=== PATIENT | male | born 1990 | race Two or more races ===

== ENCOUNTER 2018-07-18 15:20 | Emergency (ER) | payer OTHER ==
[~2018-07-18] VITALS: Ht 175.3 cm; Wt 72.6 kg
[2018-07-18 15:20] VITALS: BP_SYST 127; BP_DIAS 82; BP_DIAS 84
[~2018-07-18 15:20] MED LIST: DiphenhydrAMINE 50mg/ml Inj IM ONE; Haloperidol 5mg/ml Inj IM ONE; LORazepam Inj 2mg/ml 1ml IM ONE
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
[2018-07-18] MEDS ORDERED: Haloperidol 5mg/ml Inj ONE (15:25)
[2018-07-18] MEDS ORDERED: LORazepam Inj 2mg/ml 1ml ONE (15:25)
[2018-07-18] MEDS ORDERED: DiphenhydrAMINE 50mg/ml Inj ONE (15:25)
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
[2018-07-18] MEDS ORDERED: Bacitracin Oint UD TOPIC ONE (15:30)
[2018-07-18 15:35] VITALS: BP 115/82
[2018-07-18 15:50] VITALS: BP 107/85
--- NOTE | 2018-07-18 16:00 | NUR ---
ED Nurse Note: Patient's belongings are located at located #2
[2018-07-18 16:06] VITALS: BP 102/85
--- NOTE | 2018-07-18 16:06 | NUR ---
ED Nurse Note: Patient has met all criterias for restraints removed, received order from dr. rodriguez for all restraints to be removed, no skin issues noted.
[2018-07-18 16:16] LABS: APPEARANCE,URINE CLEAR; BILIRUBIN, URINE NEGATIVE (NEGATIVE); GLUCOSE, URINE (UA) NEGATIVE (NEGATIVE); KETONES,URINE NEGATIVE (NEGATIVE); LEUKOCYTE ESTERASE ,URINE 1+ (NEGATIVE); NITRITE,URINE NEGATIVE (NEGATIVE); PH,URINE 7 (4.5-8.0); PROTEIN,URINE 1+ (NEGATIVE); UROBILINOGEN,URINE NORMAL MG/DL (0.0-1.0)
[2018-07-18 16:18] LABS: BASOPHILS % (AUTO) 0.9 % (0.0-2.0); EOSINOPHILS % (AUTO) 0.5 % (0.0-3.0); HEMATOCRIT 42.7 % (42.0-52.0); HEMOGLOBIN 14.5 G/DL (14.2-18.0); LYMPHOCYTES % (AUTO) 22.9 % (20.0-45.0); MEAN CORPUSCULAR VOLUME 87 FL (80-99); MONOCYTES % (AUTO) 6.1 % (1.0-10.0); NEUTROPHILS % (AUTO) 69.6 % (45.0-75.0); PLATELET COUNT 174 K/UL (150-450); RED BLOOD COUNT 4.92 M/UL (4.70-6.10); RED CELL DISTRIBUTION WIDTH 11.8 % (11.6-14.8); WHITE BLOOD COUNT 5.7 K/UL (4.8-10.8)
[2018-07-18 16:19] LABS: COLOR,URINE YELLOW
--- NOTE | 2018-07-18 16:25 | NUR ---
ED Nurse Note: Patient is calm and sleeping in bed, no distress noted
[2018-07-18 16:27] LABS: ANION GAP 11 mmol/L (5-15); BLOOD UREA NITROGEN 17 mg/dL (7-18); CALCIUM 9.2 MG/DL (8.5-10.1); CARBON DIOXIDE 27 MMOL/L (21-32); CHLORIDE 104 MMOL/L (98-107); CREATININE 0.9 MG/DL (0.55-1.30); POTASSIUM 3.3 MMOL/L (3.5-5.1); SODIUM 142 MMOL/L (136-145)
[2018-07-18 16:32] LABS: ALANINE AMINOTRANSFERASE 24 U/L (12-78); ALBUMIN 3.9 G/DL (3.4-5.0); ALBUMIN/GLOBULIN RATIO 1.3 (1.0-2.7); ALKALINE PHOSPHATASE 90 U/L (46-116); ASPARTATE AMINO TRANSFERASE 21 U/L (15-37); BILIRUBIN,TOTAL 0.5 MG/DL (0.2-1.0); CREATINE KINASE 103 U/L (26-308)
[2018-07-18 19:30] VITALS: BP 141/96
--- NOTE | 2018-07-18 19:30 | NUR ---
ED Nurse Note: RECIEVED REPORT FROM TEQUILA MIRANDA TO RESUME CARE, PT IN BED RESTING QUIETLY WITH BLANKETS OVER FACE, PT AWAKENED AND IS ALERT AND ORIENTED X 4, PT IS SLIGHTLY NOT COOPERATIVE AND SELECTIVE WITH QUESTIONS HE CHOOSES TO ANSWER, WILL NOT ANSWER IF HE IS SUICIDAL OR HOMICIDAL, DOES NOT ANSWER MOST QUESTIONS AT ALL, DOES COOPERATE WITH MOVING AND REPOSITIONING, ON CARDIAC MONITORING, HAS BEEN MEDICALLY CLEARED AND WAITING FOR PLACEMENT, WILL RESUME CARE ORDERED AND CONTINUE TO CLOSELY MONITOR.
[2018-07-18 21:00] VITALS: BP 111/88
--- NOTE | 2018-07-18 21:00 | NUR ---
ED Nurse Note: PT CONTINUES TO SLEEP IN BED, AROUSES EASILY TO VERBAL STIMULI, REMAINS SELECTIVELY MUTE, DOES RESPOND WITH THANK YOU, AND YES AND NO RESPONSES, DENIES PAIN, REMAINS ON CARDIAC MONITORING, V/S STABLE, NO SOB OR LABORED BREATHING, PT REMAINS ON 5150 HOLD, WILL CONTINUE TO MONITOR WHILE WAITING FOR PLACEMENT FOR PT.
[2018-07-19] VITALS (9 sets, daily range): BP systolic 96–118; BP diastolic 52–84
--- NOTE | 2018-07-19 | NUR ---
ED Nurse Note: PT CONTINUES TO SLEEP QUIETLY, REMAINS ON CARDIAC MONITORING, B/P LOWER BUT MD MARCO AWARE, PT REMAINS ON 5150 HOLD, CONTINUING TO SEARCH FOR PLACEMENT, UN-SUCCESSFUL AT THIS TIME, PT IV SITE INTACT AND PATENT, O2 SAT=98% ON RA, PT AWAKENS EASILY TO VERBAL STIMULI BUT CONTINUES TO NOT ANSWER ANY QUESTIONS, NO ATTEMPTS OR BEHAVIORAL CHANGES NOTED, WILL CONTINUE TO CLOSELY MONITOR.
--- NOTE | 2018-07-19 03:00 | NUR ---
ED Nurse Note: PT CONTINUES TO REST QUIETLY IN BED, AROUSES EASILY TO VERBAL STIMULI, PT DENIES PAIN, DENIES SUICIDAL OR HOMICIDAL IDEATIONS, NO ATTEMPTS MADE, PT REMAINS ON CARDIAC MONITORING, IV SITE INTACT AND PATENT, PT REMAINS ON 5150 HOLD, WAITING FOR PLACEMENT.
--- NOTE | 2018-07-19 06:00 | NUR ---
ED Nurse Note: NO ACUTE CHANGES OR INCREASED DISTRESS NOTED, PT RESTING QUIETLY IN BED, AROUSES EASILY TO VERBAL STIMULI, PT DENIES PAIN, NO CHANGES OR INCREASED DISTRESS, PT REMAINS ON 5150 HOLD AND WAITING FOR PLACEMENT, NO FACILITIES AVAILABLE AT THIS TIME.
--- NOTE | 2018-07-19 07:11 | NUR ---
ED Nurse Note: PT ROOM CHANGED TO TREATMENT AREA, PT IS AWAKE, ALERT AND ORIENTED X 4, REMAINS ON 5150 HOLD, IV SITE PATENT WITH FLUIDS INFUSING, PT TOLERATING WELL, PT DENIES PAIN, NO SOB OR LABORED BREATHING, VERBAL REPORT GIVEN TO TEQUILA FIERRO TO [facility]UME [facility], NAD NOTED DURING SHIFT CHANGE.
--- NOTE | 2018-07-19 07:37 | NUR ---
ED Nurse Note: REPORT RECEIVED FROM TEQUILA CHE. PT SLEEPING PEACEFULLY IN BED IN NAD. PATENT IV RUNNING IV FLUIDS. VSS.
--- NOTE | 2018-07-19 08:00 | NUR ---
ED Nurse Note: BREAKFAST TRAY PROVIDED TO PT. PT STATES HE WILL EAT IT LATER. TRAY LEFT AT BEDSIDE. PT AOX4. CALM AND COOPERATIVE.
--- NOTE | 2018-07-19 10:30 | NUR ---
ED Nurse Note: PT AMBULATED INDEPENDENTLY TO RESTROOM WITH STEADY GAIT.
--- NOTE | 2018-07-19 12:21 | NUR ---
ED Nurse Note: LUNCH TRAY PROVIDED FOR PT.
--- NOTE | 2018-07-19 13:00 | NUR ---
ED Nurse Note: PT AMBULATED INDEPENDTLY TO RESTROOM WITH STEADY GAIT.
--- NOTE | 2018-07-19 16:30 | NUR ---
ED Nurse Note: [facility]PH[facility] CALLED FOR PT REPORT. REPORT GIVEN TO TEQUILA ROSADO. FACILITY AWARE OF AMBULANCE ETA OF 1610 AND STATES THEY ARE READY TO ACCEPT PT.
--- NOTE | 2018-07-19 16:38 | NUR ---
ED Nurse Note: [facility] AT BEDSIDE. REPORT GIVEN TO EMS.
--- NOTE | 2018-07-19 16:50 | NUR ---
ED Nurse Note: [facility] BED[facility]IDE. PT AOX4. CALM AND COOPERATIVE. VSS. PT TAKEN TO [facility] VIA AMBULANCE WITH ALL BELONGINGS ACCOMPANIED BY EMS.
--- NOTE | 2018-07-22 19:22 | Cardiology Report ---
APPROVED REPORT EKG Measurement Heart [id number] Normal sinus rhythm with sinus arrhythmia Normal ECG
--- NOTE | 2018-07-22 19:24 | Cardiology Report ---
APPROVED REPORT EKG Measurement Heart [id number] HI [id number] [id number] Sinus tachycardia Possible Left atrial enlargement Borderline ECG
== END 2018-07-19 16:53 ==
LOC: EDBD 15:20 → EMR 15:30 → EDBD 15:30 → EMR 07-19 16:53
DX: F25.0 Schizoaffective disorder, bipolar type (principal); F15.90 Other stimulant use, unspecified, uncomplicated; S40.212A Abrasion of left shoulder, initial encounter; S00.81XA Abrasion of other part of head, initial encounter; Y04.0XXA Assault by unarmed brawl or fight, initial encounter; Y92.89 Other specified places as the place of occurrence of the external cause
CPT/HCPCS: 36415; 80053; 80307; 80329; 81003; 82550; 85025; 93005; 96360; 96372; 99284; J1200; J1630

== ENCOUNTER → 2018-07-19 | Emergency (ER) | payer OTHER ==
[~2018-07-19] VITALS: Ht 167.6 cm; Wt 61.2 kg
[2018-07-19 19:36] VITALS: BP 128/68
--- NOTE | 2018-07-19 19:37 | NUR ---
ED Nurse Note: Pt could not be accepted at [facility], secondary to 5150 not being signed by [employer]. [employer] called in advance - present in ER, 5150 signed. Pt, and original, signed 5150 returned to [facility]; [facility] at [facility] accept.
[2018-07-19 19:38] VITALS: BP 130/67
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
== END | disposition left against medical advice (07) ==
LOC: EDUNIT# 19:24 → EDBD 19:27 → EMR 19:35
DX: Z53.21 Procedure and treatment not carried out due to patient leaving prior to being seen by health care provider (principal)